=== PATIENT | female | born 1945 | race Caucasian/White ===

== ENCOUNTER → 2018-02-14 | Outpatient (CLI) | payer MEDICARE ==
[~2018-02-14] MED LIST: ACYCLOVIR 400400 MG PO; ALLERGY RELIEF10 M3 PO; CARISOPRODOL 3350 MG PO; CYMBALTA60 MG PO; FENOFIBRATE160 MG PO; FISH OIL 1,0001 EAC5 PO; FLONASE 0.05%50 MCG NASAL; HYDROCODON-ACE1 EAC5 PO; LO-DOSE ASPIRIN81 M1 PO; LODINE500 MG PO; PREMARIN0.625 MG PO; TOPAMAX100 MG PO; VITAMIN D1000 UNI1 PO; ZEGERID OTC 201 EACH PO
== END ==
LOC: M.RAD 09:38
DX: Z12.31 Encounter for screening mammogram for malignant neoplasm of breast (principal)

== ENCOUNTER → 2019-02-19 | Outpatient (CLI) | payer MEDICARE | LOC: M.MRI 08:15 | DX: Z12.31 Encounter for screening mammogram for malignant neoplasm of breast (principal); M43.12 Spondylolisthesis, cervical region; M25.78 Osteophyte, vertebrae; M50.221 Other cervical disc displacement at C4-C5 level; M48.02 Spinal stenosis, cervical region ==

== ENCOUNTER → 2019-04-02 | Outpatient (CLI) | payer MEDICARE | LOC: M.MRI 08:30 | DX: M47.814 Spondylosis without myelopathy or radiculopathy, thoracic region (principal); G89.29 Other chronic pain; R29.2 Abnormal reflex; R26.89 Other abnormalities of gait and mobility ==

== ENCOUNTER → 2019-04-17 | Outpatient (CLI) | payer MEDICARE | LOC: M.RAD 10:19 | DX: M19.042 Primary osteoarthritis, left hand (principal); M19.041 Primary osteoarthritis, right hand; M25.571 Pain in right ankle and joints of right foot ==

== ENCOUNTER → 2019-05-02 | Outpatient (CLI) | payer MEDICARE | LOC: M.RAD 16:01 | DX: M25.571 Pain in right ankle and joints of right foot (principal); Z88.8 Allergy status to other drugs, medicaments and biological substances; Z88.2 Allergy status to sulfonamides ==

== ENCOUNTER → 2019-05-16 | Outpatient (CLI) | payer MEDICARE | LOC: M.RAD 14:49 | DX: M25.471 Effusion, right ankle (principal) ==

== ENCOUNTER → 2020-03-26 | Outpatient (CLI) | payer MEDICARE | LOC: M.RAD 02-21 09:30 | PROVIDERS: ATTEND Internal Medicine Hematology & Oncology | DX: Z12.31 Encounter for screening mammogram for malignant neoplasm of breast (principal) ==

== ENCOUNTER → 2021-03-30 | Outpatient (CLI) | payer MEDICARE | LOC: M.RAD 10:36 | PROVIDERS: ATTEND Internal Medicine Hematology & Oncology | DX: Z12.31 Encounter for screening mammogram for malignant neoplasm of breast (principal) ==